=== PATIENT | male | born 1985 | race Asian ===

== ENCOUNTER → 2019-01-22 | Outpatient (CLI) | payer BC | LOC: BMCIMAGING 13:26 | PROVIDERS: ATTEND Family Medicine | DX: S62.398A Other fracture of other metacarpal bone, initial encounter for closed fracture (principal); S67.21XA Crushing injury of right hand, initial encounter; X58.XXXA Exposure to other specified factors, initial encounter; Y93.69 Activity, other involving other sports and athletics played as a team or group ==